=== PATIENT | female | born 1970 | race Caucasian/White ===

== ENCOUNTER → 2020-08-01 08:57 | Outpatient (CLI) | payer BC, SELFPAY ==
--- NOTE | ~2020-08-01 | MM_ITS ---
EXAMINATION: MM screening jeromy BI w augustin HISTORY: Screening mammogram TECHNIQUE: Craniocaudal and mediolateral oblique 3-D tomosynthesis images were obtained and synthetic 2-D images were generated. CAD analysis was submitted and interpreted. COMPARISON: 04/05/2019, 07/08/2017, 05/16/2016 bilateral digital screening mammogram examinations BREAST PARENCHYMAL COMPOSITION: The breasts are heterogeneously dense, which may obscure small masses . FINDINGS: Stable mild fibroglandular asymmetry. There is no evidence of suspicious mass, calcificatio n, or architectural distortion to suggest malignancy in either breast. There has been no suspicious i nterval change. IMPRESSION: 1. No mammographic evidence of malignancy. 2. Recommend routine screening mammography in one year. BI-RADS Category 2: Benign finding(s). Reviewed, dictated and finalized at location A. 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
== END ==
PROVIDERS: Visit Provider Family Medicine
DX: Z12.31 Encounter for screening mammogram for malignant neoplasm of breast (principal)
CPT/HCPCS: 77063; 77067

== ENCOUNTER → 2022-07-12 16:02 | Outpatient (CLI) | payer BC, SELFPAY ==
--- NOTE | ~2022-07-12 | MM_ITS ---
EXAMINATION: MM screening jeromy BI w augustin HISTORY: Screening mammogram TECHNIQUE: Craniocaudal and mediolateral oblique 3-D tomosynthesis images were obtained and synthetic 2-D images were generated. CAD analysis was submitted and interpreted. COMPARISON: August 01, 2020, April 05, 2019, July 12, 2017 bilateral screening mammogram exami [place] BREAST PARENCHYMAL COMPOSITION: There are scattered areas of fibroglandular density. FINDINGS: There is no evidence of suspicious mass, calcification, or architectural distortion to sugg est malignancy in either breast. There has been no suspicious interval change. IMPRESSION: 1. No mammographic evidence of malignancy. 2. Recommend routine screening mammography in one year. BI-RADS Category 1: Negative Reviewed, dictated and finalized at location A. ER CUTTER
== END ==
PROVIDERS: PCP Obstetrics & Gynecology; Visit Provider Family Medicine
DX: Z12.31 Encounter for screening mammogram for malignant neoplasm of breast (principal)
CPT/HCPCS: 77063; 77067

== ENCOUNTER 2024-01-28 11:36 | Emergency (ER) | payer BC, SELFPAY ==
[2024-01-28 11:47] VITALS: BP 122/68; PULSE 67; RESP 18; TEMP 36.6; O2SAT 100
--- NOTE | 2024-01-28 11:56 | ED.GENADULT ---
HPI - General Adult General Chief complaint: Skin/Abscess/Foreign Body Stated complaint: Reaction from Sting Time Seen by Provider: 01/28/24 11:56 Source: patient Mode of arrival: ambulatory Limitations: no limitations History of Present Illness HPI narrative: 53-year-old female patient presents to the [facility] with complaints of an insect sting to the right forearm that happened yesterday. Patient states she did take Benadryl after noticing this thing. Patient states today the redness and warmth has spread and she is causing pain to the right forearm. Denies fevers, body aches or chills. Related Data Home Medications Medication Instructions Recorded Confirmed fluticasone propionate 50 2 spray intranasal DAILY 01/28/24 01/28/24 mcg/actuation nasal spray,suspension Allergies Allergy/AdvReac Type Severity Reaction Status Date / Time Penicillins AdvReac Mild Hives Verified 01/28/24 11:46 Review of Systems Review of Systems: CONSTITUTIONAL: Denies fever, chills, or sweats. EYES: Denies visual changes, redness, or discharge. ENT: Denies rhinorrhea, congestion, sore throat, or otalgia. CARDIOVASCULAR: Denies chest pain, palpitations, or edema. RESPIRATORY: Denies cough or dyspnea. GASTROINTESTINAL: Denies abdominal pain, nausea, vomiting, or diarrhea. GENITOURINARY: Denies dysuria or hematuria. SKIN: Positive insect sting to the right forearm with surrounding redness. MUSCULOSKELETAL: Denies back pain, joint pain, or myalgia. NEUROLOGIC: Denies headache, numbness, or weakness. PSYCHIATRIC: Denies anxiety or depression. PMFSH Family History Family History Other Diabetes mellitus Family history of cardiovascular disease Social History Social History Smoking status: Never smoker Alcohol intake: never Comments At the time of my signature I agree with nursing past medical history, surgical, social, and family history. There is no relevant family history pertinent to the presenting complaint. Exam Narrative: GENERAL: Well-appearing, well-nourished, and in no acute distress. HEAD: Normocephalic, atraumatic. EYES: PERRLA and EOMI. ENT: Nares clear, no rhinorrhea or epistaxis. Mucous membranes moist. NECK: Supple. No lymphadenopathy CHEST: Clear to auscultation. No respiratory distress. HEART: Regular rate and rhythm. No murmur heard. Normal peripheral pulses. ABDOMEN: Soft, nontender, nondistended, normal active bowel sounds. EXTREMITIES: Normal range of motion. No edema. SKIN: Warm, dry, no rash. Patient has a notable punctate linette with scabbing to the right forearm with surrounding erythema and warmth measuring approximately 12 cm by 7 cm. NEURO: No focal deficits. Alert and oriented x3. Course Course Level of Care: Express Care Visit Vital Signs Vital signs: Vital Signs Temperature 36.6 C 01/28/24 11:47 Pulse Rate 67 01/28/24 11:47 Respiratory Rate 18 01/28/24 11:47 Blood Pressure 122/68 01/28/24 11:47 Pulse Oximetry 100 01/28/24 11:47 Oxygen Delivery Room Air 01/28/24 11:47 Temperature 36.6 C 01/28/24 11:47 Pulse Rate 67 01/28/24 11:47 Respiratory Rate 18 01/28/24 11:47 Blood Pressure 122/68 01/28/24 11:47 Pulse Oximetry 100 01/28/24 11:47 Oxygen Delivery Room Air 01/28/24 11:47 Vital signs reviewed. Medical Decision Making MDM Narrative Medical decision making narrative: Plan care patient is discharged home with antibiotics for possible cellulitis infection due to an insect sting. Discussed with patient she can also take [id number] 24 at our antihistamines like Zyrtec or Claritin to help with the itching, she may place ice or heat on the area to help with pain and take Tylenol ibuprofen as needed. The area was marked and notify patient that if the redness goes out of the marked area she needs re-evaluated in
== END 2024-01-28 12:06 | disposition home or self-care (01) ==
PROVIDERS: Emergency Provider Nurse Practitioner Family
DX: L03.113 Cellulitis of right upper limb (principal)
CPT/HCPCS: 99213; G0463